=== PATIENT | female | born 1990 | race Caucasian/White ===

== ENCOUNTER 2018-08-31 07:23 | Day surgery (SDC) | payer OTHER ==
[2018-08-31] MEDS ORDERED: BUPIVACAINE/EPI 0.5% 30 ML SDV ONE (07:42)
[2018-08-31] MEDS ORDERED: ceFAZolin 2 GM/DEXTROSE 100 ML IV ONE (07:42)
[2018-08-31] MEDS ORDERED: ACETAMINOPHEN 500 MG TAB PO ONE (07:42)
[2018-08-31] MEDS ORDERED: PHENAZOPYRIDINE HCL 200 MG TAB PO ONE (07:42)
[2018-08-31] MEDS ORDERED: GABAPENTIN 300 MG CAP PO ONE (07:42)
[2018-08-31] MEDS ORDERED: LR 1,000 ML IV ONE (07:44)
[2018-08-31] MEDS ORDERED: LIDOCAINE 1% 2 ML INJ ID PRN (07:44)
[2018-08-31] MEDS ORDERED: MIDAZOLAM 2 MG/2 ML VIAL IVP ONE (08:04)
--- NOTE | 2018-08-31 09:04 | PDHPUP ---
History & Physical Update H&P update statement: This history and physical update is based on an assessment of the patient which was completed after admission or registration (within 24 hours), but prior to the surgery/procedure. H&P update: H&P reviewed & patient examined, no change in patient's condition since H&P completed
--- NOTE | 2018-08-31 09:22 | PDANEPAE ---
ANE Past Medical History - Cardiovascular History Hx Hypertension: No Hx Arrhythmias: No Hx Chest Pain: No Hx Coronary Artery / Peripheral Vascular Disease: No Hx CHF / Valvular Disease: No Hx Palpitations: No - Pulmonary History Hx COPD: No Hx Asthma/Reactive Airway Disease: No Hx Recent Upper Respiratory Infection: No Hx Oxygen in Use at Home: No Hx Sleep Apnea: No Sleep Apnea Screening Result - Last Documented: Negative - Neurologic History Hx Cerebrovascular Accident: No Hx Seizures: No Hx Dementia: No - Endocrine History Hx Diabetes: No - Renal History Hx Renal Disorders: No - Liver History Hx Hepatic Disorders: No - Neurological & Psychiatric Hx Hx Neurological and Psychiatric Disorders: No - Cancer History Hx Cancer: No - Congenital Disorder History Hx Congenital Disorders: No - GI History Hx Gastrointestinal Disorders: Yes Gastrointestinal History Comment: EGD for abdominal pain and to r/o ulcers. hx of esophageal ulcer - Other Health History Other Health History: wears glasses for driving. acne - Chronic Pain History Chronic Pain: Yes (abd pain from endometriosis) - Surgical History Prior Surgeries: exp lap where she was diagnosed with endometriosis end of 2016. wisdom teeth. egd ANE Review of Systems Review of Systems: - Exercise capacity METS (RN): 6 METS ANE Patient History - Allergies Allergies/Adverse Reactions: Sulfa (Sulfonamide Antibiotics) Allergy (Verified 08/22/18 12:02) Vomiting - Home Medications Home Medications: Bcp Pill 08/22/18 [Last Taken 08/30/18 23:00] Herbals/Supplements -Info Only 08/22/18 [Last Taken 08/24/18] - NPO status NPO Since - Liquids (Date): 08/31/18 NPO Since - Liquids (Time): 06:00 NPO Since - Solids (Date): 08/30/18 NPO Since - Solids (Time): 19:00 - Anes Hx Anes Hx: no prior problems - Smoking Hx Smoking Status: Never smoked - Family Anes Hx Family Hx Anesthesia Complications: none ANE Labs/Vital Signs - Vital Signs Vital Signs: reviewed preoperatively; see RN documention for details Blood Pressure: 121/76 Heart Rate: 99 Respiratory Rate: 16 O2 Sat (%): 98 Height: 170.18 cm Weight: 82.554 kg ANE Physical Exam - Airway Neck exam: FROM Mallampati Score: Class 1 Mouth exam: normal dental/mouth exam - Pulmonary Pulmonary: clear to auscultation - Cardiovascular Cardiovascular: regular rate and rhythym - ASA Status ASA Status: II ANE Anesthesia Plan Anesthesia Plan: general endotracheal anesthesia
[2018-08-31] MEDS ORDERED: fentaNYL 100 MCG/2 ML INJ ONE (09:23)
[2018-08-31] MEDS ORDERED: PROPOFOL 200 MG/20 ML VIAL ONE (09:23)
[2018-08-31] MEDS ORDERED: ROCURONIUM 50 MG/5 ML VIAL ONE (09:25)
[2018-08-31] MEDS ORDERED: HYDROmorphONE/DILAUDID 2 MG/ML INJ ONE (09:48)
[2018-08-31] MEDS ORDERED: METOCLOPRAMIDE 10 MG/2 ML VIAL ONE (10:45)
[2018-08-31] MEDS ORDERED: ONDANSETRON 4 MG/2 ML VIAL ONE (10:45)
[2018-08-31] MEDS ORDERED: KETOROLAC 30 MG/1 ML SDV ONE (10:46)
[2018-08-31] MEDS ORDERED: NALOXONE HCL 0.4 MG/ML INJ IVP PRN (10:59)
[2018-08-31] MEDS ORDERED: oxyCODONE IR 5 MG TAB PO PRN (10:59)
[2018-08-31] MEDS ORDERED: DIAZEPAM 5 MG/ML 1 ML SYR IVP PRN (10:59)
[2018-08-31] MEDS ORDERED: fentaNYL 100 MCG/2 ML INJ IVP PRN (10:59)
[2018-08-31] MEDS ORDERED: PROMETHAZINE HCL 25 MG/ML INJ IVP PRN (10:59)
[2018-08-31] MEDS ORDERED: METOCLOPRAMIDE 10 MG/2 ML VIAL IVP PRN (10:59)
[2018-08-31] MEDS ORDERED: ONDANSETRON 4 MG/2 ML VIAL IVP PRN (10:59)
[2018-08-31] MEDS ORDERED: MEPERIDINE 25 MG/0.5 ML AMP IVP PRN (10:59)
[2018-08-31] MEDS ORDERED: LR 500 ML IV PRN (10:59)
[2018-08-31] MEDS ORDERED: HYDROmorphONE/DILAUDID 2 MG/ML INJ IVP PRN (10:59)
[2018-08-31] MEDS ORDERED: ALBUTEROL 3 ML DEYVIAL IH PRN (10:59)
--- NOTE | 2018-08-31 11:22 | POSTOPPROG ---
Post Op Note Date of Operation: 08/31/18 Surgeon: Elio Ngo Tube Builder Airplane: Merry Kiran Anesthesiologist: Marley Anesthesia: GET(General Endotracheal) Pre-op Diagnosis: Endometriosis Post-op Diagnosis: Same Procedure: Robotic excision of endo, bilat ureterolysis, cysto Findings: Endo Inf/Abcess present in the surg proc area at time of surgery?: No EBL: Minimal Complications: None
--- NOTE | 2018-08-31 12:11 | GOP ---
[f rep st] OPERATIVE REPORT DATE OF OPERATION: 08/31/2018 SURGEON: Elio Ngo MD ENVIRONMENTAL EDUCATOR: SHIV Cr. ANESTHESIA: General. PREOPERATIVE DIAGNOSIS: 1. Dysmenorrhea. 2. Endometriosis. 3. Midcycle pain. 4. Urinary frequency and urgency. POSTOPERATIVE DIAGNOSIS: 1. Dysmenorrhea. 2. Endometriosis. 3. Midcycle pain. 4. Urinary frequency and urgency. PROCEDURE PERFORMED: 1. Robotic excision of endometriosis in the anterior and posterior cul-de-sac, bilateral pelvic side richard, as well as a bladder serosal lesion. 2. Bilateral ureterolysis. 3. Excision of rectal lesion. 4. Bilateral ovariopexy. 5. Cystoscopy. FINDINGS: There was no evidence of endometriosis on either diaphragm, liver, or upper abdominal jordan l. Within the pelvis, she had a nodular type lesion of endometriosis in the anterior cul-de-sac at t he junction of the bladder to the cervix. She had endometriosis in the posterior cul-de-sac and bila teral pelvic sidewalls including both uterosacral ligaments. She had several lesions on each ovary. There was no endometriosis on the uterus. Two lateral ports were placed in the right, one on the left under direct visualization. She then was placed in Trendelenburg position and the da Inocente robot docked on the left side. The instruments we re brought into the abdominal cavity under direct visualization. The anterior cul-de-sac including t he deeper lesion was completely excised. The lesions on each ovary were then treated. A bilateral o variopexy was performed by attaching each ovary to the ipsilateral round ligaments near the internal inguinal ring with 3-0 Vicryl Rapide suture. The lesions on the distal rectum were then excised. Th e entire posterior cul-de-sac peritoneum from the distal rectum up to the cervix and laterally to the uterosacral ligaments was then completely excised. Given the endometriosis overlying both ureters, a bilateral ureterolysis was required. The peritoneum at the pelvic brims was incised. The ureters were gently dissected free and lateralized off the overlying peritoneum and endometriosis from the pe lvic brim down to each uterine artery. Once this was accomplished, the entire pelvic sidewall perito neum was completely excised. The pelvis was then copiously irrigated with sterile saline. Given the broad area of raw tissue in the anterior cul-de-sac, Stephen was sprayed to stop the oozing. One she et of Interceed was placed in the anterior cul-de-sac to protect the minimize postoperative adhesion formation. The robot was then undocked. The skin was closed with 4-0 Monocryl and surgical adhesive . Cystoscopy was then performed. Both ureters had vigorous jets of urine. There was no evidence of bl adder injury from her deeper anterior cul-de-sac lesion. There was no obvious pathology to explain h er urinary frequency and urgency other than the peritoneal lesions of endometriosis. Anesthesia was then reversed. The patient taken to the PACU awake, in stable condition. SPECIMENS: 1. Pelvic peritoneum with endometriosis. 2. Bladder lesion. 1. Rectal lesion. 3. ESTIMATED BLOOD LOSS: 20 mL. DESCRIPTION OF PROCEDURE: The patient was taken to the operating room where she was identified. Gen eral anesthesia was administered and found to be adequate. She was placed in the lithotomy position and prepared and draped in normal sterile fashion. A Cifuentes catheter was placed in her bladder. A Hu lka tenaculum was placed in the uterus for manipulation. An 8 mm infraumbilical incision was made with a scalpel. The Veress needle with CO2 gas flowing was advanced into the peritoneal cavity. The abdomen was then insufflated with carbon dioxide gas. The 8 mm trocar, followed by the laparoscope were then inserted. COMPLICATIONS: None. DISPOSITION: Patient stable to PACU. /[id number]/MODL
[2018-08-31] MEDS ORDERED: HYDROCODONE/APAP 5/325 TAB PO PRN (12:19)
--- NOTE | 2018-08-31 12:20 | POSTANESTH ---
Post Anesthetic Evaluation Cardiovascular Status: Normal, Stable Respiratory Status: Normal, Stable Level of Consciousness/Mental Status: Can Participate in Eval Pain Control: Adequate, Prn Tx Ordered Nausea/Vomiting Control: Adequate, Prn Tx Ordered Complications Possibly Related to Anesthesia: None Noted
[2018-08-31 14:34] VITALS: BP 100/67
== END 2018-08-31 14:34 | disposition home or self-care (01) ==
LOC: FSGY 07:23
PROVIDERS: ATTEND Obstetrics & Gynecology
PROC: 0UBF4ZZ Excision of Cul-de-sac, Percutaneous Endoscopic Approach (ICD-10-PCS; principal; 2018-08-31 09:00)
PROC: 0DBP4ZZ Excision of Rectum, Percutaneous Endoscopic Approach (ICD-10-PCS; principal; 2018-08-31 09:00)
PROC: 0US24ZZ Reposition Bilateral Ovaries, Percutaneous Endoscopic Approach (ICD-10-PCS; principal; 2018-08-31 09:00)
PROC: 8E0W4CZ Robotic Assisted Procedure of Trunk Region, Percutaneous Endoscopic Approach (ICD-10-PCS; principal; 2018-08-31 09:00)
DX: N94.6 Dysmenorrhea, unspecified (principal); N80.3 Endometriosis of pelvic peritoneum; N80.1 Endometriosis of ovary; N80.8 Other endometriosis; R39.15 Urgency of urination; R35.0 Frequency of micturition; E28.2 Polycystic ovarian syndrome; E55.9 Vitamin D deficiency, unspecified; Z88.2 Allergy status to sulfonamides
CPT/HCPCS: 58662; 58679; C1765; J0690; J1170; J1885; J2250; J2405; J2704; J2765; J3010